=== PATIENT | female | born 1960 | race Caucasian/White ===

== ENCOUNTER 2017-02-24 08:21 | Day surgery (SDC) | payer OTHER ==
[2017-02-24 09:01] VITALS: O2SAT 100
--- NOTE | 2017-02-24 10:43 | CP.SDSHP ---
Same Day Surgery H & P - History Proposed Procedure: US guided FNA of left parotid mass Pre-Op Diagnosis: Left parotid mass - Physical Exam Vital Signs: Vital Signs 02/24/17 08:43 Temperature 97.9 F Pulse Rate 79 Respiratory 20 Rate Blood Pressure 139/79 O2 Sat by Pulse 100 Oximetry Mental Status: Alert & Oriented x3 Neuro: WNL Heart: WNL Lungs: WNL - Impression Impression: Pt with a 2 cm left parotid mass. Plan US guided FNA. Informed consent obtained. Pt. Evaluated Today:Candidate for Anesthesia & Procedure: No - Date & Time Date: 02/24/17 Time: 10:00 Short Stay Discharge - Short Stay Discharge Admitting Diagnosis/Reason for Visit: PAROTID MASS
[2017-02-24 10:45] VITALS: BMI 23.1
--- NOTE | 2017-02-24 10:45 | PCM.SURG1 ---
Surgeon's Initial Post Op Note - Surgeon's Notes Surgeon: Jake Ventura MD Sales Operations Assistant: [employer] Type of Anesthesia: Local Pre-Operative Diagnosis: Left parotid nodule Operative Findings: US showed a 2 cm solid left parotid nodule Post-Operative Diagnosis: Left parotid nodule Operation Performed: US guided FNA Specimen/Specimens Removed: 25 g FNA x 4 passes Estimated Blood Loss: EBL {In ML}: 0 Blood Products Given: N/A Drains Used: No Drains Post-Op Condition: Fair Date of Surgery/Procedure: 02/24/17 Time of Surgery/Procedure: 10:40
[2017-02-24 11:06] VITALS: BP 118/71; PULSE 73; RESP 18; TEMP 97.8
--- NOTE | 2017-02-26 15:18 | US ---
PROCEDURE: DATE OF PROCEDURE: 02/24/2017 PROCEDURE: 1. Ultrasound-guided FNA of a left parotid mass 2. Ultrasound guidance for procedure, Medications: 4cc 1 percent lidocaine HISTORY: Left parotid mass TECHNIQUE: Following informed consent, the left parotid area was marked. Procedure time out was called and the parotid area was prepped and draped in the usual sterile manner. A limited ultrasound was performed of the left parotid which shows a 1.9 centimeter complex mass. Ultrasound-guided FNA was performed. Under ultrasound guidance, a 25 gauge needle was advanced into the nodule. A FNA sample was placed on slides and sent for routine pathology. Four passes were made into the nodule. A post biopsy ultrasound showed no hematoma. IMPRESSION: Ultrasound-guided FNA left parotid mass.
== END 2017-02-24 11:10 | disposition home or self-care (01) ==
LOC: C.SPRAD 08:21
PROVIDERS: ATTEND Radiology Vascular & Interventional Radiology
DX: K11.9 Disease of salivary gland, unspecified (principal)